=== PATIENT | male | born 1960 | race Caucasian/White ===

== ENCOUNTER 2018-09-08 15:25 | Emergency (ER) | payer MEDICAID ==
[~2018-09-08] VITALS: Ht 180.3 cm; Wt 79.4 kg
--- NOTE | 2018-09-08 15:45 | NUR ---
PT YELLING AND THRASHING IN BED. PT PLACED IN 2 POINT RESTRAINTS TO KEEP PT FROM FALLING OUT OF BED.
--- NOTE | 2018-09-08 15:45 | NUR ---
52 Y/O MALE PLACED IN BED 15 C/O EXCESS ALCOHOL CONSUMPTION.
[2018-09-08] MEDS ORDERED: IV NS 0.9% 1,000 ML BAG IV ONE (16:00)
--- NOTE | 2018-09-08 16:06 | NUR ---
PT TAKEN TO RADIOLOGY.
--- NOTE | 2018-09-08 16:40 | NUR ---
BACK FROM RADIOLOGY. IVF RUNNING.
[2018-09-08 16:50] LABS: BASOPHILS % (AUTO) 0.9 % (0.0-2.0); EOSINOPHILS % (AUTO) 0.9 % (0.0-6.0); HEMATOCRIT 40 % (39-51); HEMOGLOBIN 13.7 g/dL (13.5-17.5); LYMPHOCYTES # (AUTO) 1.1 /CMM (0.8-4.8); LYMPHOCYTES % (AUTO) 24.9 % (20.0-44.0); MEAN CORPUSCULAR HGB CONC 34 g/dl (31.0-36.0); MEAN CORPUSCULAR VOLUME 95 fL (80-96); MONOCYTES # (AUTO) 0.4 /CMM (0.1-1.30); MONOCYTES % (AUTO) 8.9 % (2.0-12.0); NEUTROPHILS # (AUTO) 2.8 /CMM (1.8-8.9); NEUTROPHILS % (AUTO) 64.4 % (43.0-81.0); PLATELET COUNT (AUTO) 185 /CMM (150-450); RED BLOOD CELL COUNT(AUTO) 4.25 MIL/uL (4.5-6.0); WHITE BLOOD COUNT (AUTO) 4.3 K/uL (4.3-11.0)
[2018-09-08 17:04] LABS: CALCIUM, SERUM 8.4 mg/dL (8.5-10.1); CARBON DIOXIDE 29 mmol/L (21-32); CHLORIDE 103 mmol/L (98-107); GLUCOSE 72 mg/dL (74-106); POTASSIUM 3.3 mmol/L (3.5-5.1); SODIUM SERUM 144 mmol/L (136-145); UREA NITROGEN, BLOOD 16 mg/dL (7-18)
[2018-09-08 17:12] LABS: ACETAMINOPHEN < 10 ug/ml (10-30); ALANINE AMINOTRANSFERASE 169 U/L (12-78); ALBUMIN 3.5 g/dL (3.4-5.0); ALCOHOL, BLOOD 450 mg/dL (0-0); ALKALINE PHOSPHATASE 70 U/L (46-116); ASPARTATE AMINOTRANSFERASE 171 U/L (15-37); BILIRUBIN,DIRECT 0.1 mg/dL (0.0-0.2); BILIRUBIN,TOTAL 0.3 mg/dL (0.2-1.0); SALICYLATE 1.1 mg/dL (2.8-20.0); TOTAL PROTEIN, SERUM 7.9 g/dL (6.4-8.2)
[2018-09-08] MEDS ORDERED: HALOPERIDOL LACTATE INJ 5 MG/ML VIAL ONE (17:50)
--- NOTE | 2018-09-08 17:53 | NUR ---
PT BECOMING RESTLESS AND YELLING. PT MEDICATED WITH HALDOL.
[2018-09-08] MEDS ORDERED: HALOPERIDOL LACTATE INJ 5 MG/ML VIAL IM ONE (18:00)
[2018-09-08] MEDS ORDERED: diphenhydrAMINE HCL 50 MG/ML VIAL IM ONE (18:30)
--- NOTE | 2018-09-08 18:54 | NUR ---
REQUEST FOR URINE CANCELLED
--- NOTE | 2018-09-08 20:51 | NUR ---
PT IS QUIET NOW. CONTINUE TO MONITOR
--- NOTE | 2018-09-08 22:36 | NUR ---
ONE OF THE TWO RESTRAINTS REMOVED. PA TO RE-EVALUATE PT.
--- NOTE | 2018-09-08 23:08 | NUR ---
PT TOTALLY OUT OF RESTRAINTS. PT BEING GIVEN MULTIPLE GLASSES OF ICE WATER. PT SHOULD BE ABLE TO WALK SHORTLY.
--- NOTE | 2018-09-08 23:35 | NUR ---
ENDORSEMENT REC'D FROM TALA SEGURA FOR [facility]
--- NOTE | 2018-09-08 23:45 | NUR ---
PT IS QUIET IN BED SLEEPING. EASILY AROUSED. NO COMPLAINTS AT THIS TIME
--- NOTE | 2018-09-09 01:07 | NUR ---
Patient is resting comfortably in bed with eyes closed. Easily aroused. VSS
--- NOTE | 2018-09-09 01:45 | NUR ---
Patient discharged to home in stable condition. Written and verbal after care instructions given. Patient verbalizes understanding of instruction.
[2018-09-09 01:55] VITALS: BP 143/78
== END 2018-09-09 01:57 | disposition home or self-care (01) ==
LOC: EDBD 15:27 → ER 15:27
DX: F10.129 Alcohol abuse with intoxication, unspecified (principal); R94.02 Abnormal brain scan; Y90.8 Blood alcohol level of 240 mg/100 ml or more
CPT/HCPCS: 36415; 70450; 71045; 80048; 80076; 80329; 83690; 85025; 96372; 99284; A4606; G0480 ×2; J1630; J7030 ×2; Z7610

== ENCOUNTER 2018-09-13 12:38 | Emergency (ER) | payer MEDICAID ==
[~2018-09-13] VITALS: Ht 177.8 cm; Wt 74.4 kg
--- NOTE | 2018-09-13 12:38 | NUR ---
PT [id number] FOR ETOH, PICKED UP FROM THE STREETS. PT IS NON-VERBAL, APPEARS INTOXICATED, RESPONSDS TO PAINFUL STIMULI, RESPIRATIOSN EVEN AND UNLABORED, NAD, PT ON MONITOR, AWAITING ER PROVIDER EVAL.
--- NOTE | 2018-09-13 14:13 | NUR ---
PT WAS BROUGHT TO CT, UPON RETURN, PT WAS RESTLESS AND TRYING TO GET OUT OF BED. ATTEMPTED TO REDIRECT AND INSTRUCT PT, INEFFECITVE AT THIS TIME. DR. MAURICE MADE AWARE, WITH ORDERS TO PUT VELCRO RESTRAINTS ON PT FOR SAFETY.
[2018-09-13] MEDS ORDERED: LORAZEPAM 1 MG TABLET ONE (15:56)
[2018-09-13] MEDS ORDERED: LORAZEPAM 1 MG TABLET PO ONE (16:00)
[2018-09-13] MEDS ORDERED: diphenhydrAMINE HCL 50 MG/ML VIAL IM ONE (16:30)
[2018-09-13] MEDS ORDERED: HALOPERIDOL LACTATE INJ 5 MG/ML VIAL IM ONE (16:30)
--- NOTE | 2018-09-13 16:45 | NUR ---
DR TAVAREZ ORDERED BENADRYL AND HALDOL FOR RESTLESSNESS, PT IS EATING RIGHT NOW, COOPERATIVE WITH STAFF. PER DR TAVAREZ, HOLD THE ORDER FOR NOW, IF PT BECOMES RESTLESS AGAIN TO GIVE MEDICATIONS.
--- NOTE | 2018-09-13 18:39 | NUR ---
ORDERED TRAY FROM KITCHEN, IN ROOM EATING FOOD AT THIS TIME
[2018-09-13 18:40] VITALS: BP 134/60
--- NOTE | 2018-09-13 19:26 | NUR ---
PT IN BED, AWAKE, ALERT, RESPONDS TO QUESTIONS APPROPRIETLY, DENIES AND SI OR HI, AAOX4, AMBULATES TO BATHROOM WITH STEADY GAIT, GIVEN FULL MEAL TRAY AND FLUIDS, DR. TAVAREZ MADE AWARE.
--- NOTE | 2018-09-13 19:37 | NUR ---
PT AWAKE, ALERT, AMBUTORY WITH STEADY GAIT, PT ELOPED, MD DR TAVAREZ MADE AWARE.
== END 2018-09-13 19:39 | disposition left against medical advice (07) ==
LOC: ER 12:42
DX: S00.81XA Abrasion of other part of head, initial encounter (principal); G93.49 Other encephalopathy; F10.129 Alcohol abuse with intoxication, unspecified; X58.XXXA Exposure to other specified factors, initial encounter; Y93.89 Activity, other specified; Y92.89 Other specified places as the place of occurrence of the external cause; Y99.8 Other external cause status
CPT/HCPCS: 36415; 70450; 72125; 99284; A4606; G0480; Z7610

== ENCOUNTER 2018-09-14 14:13 | Emergency (ER) | payer MEDICAID ==
[~2018-09-14] VITALS: Ht 175.3 cm; Wt 76.2 kg
--- NOTE | 2018-09-14 14:44 | NUR ---
PT CONTINUES TO SCREAM DESPITE REPEATED EDUCATION ON PLAN OF CARE AND ASKING HIM TO SETTLE DOWN
[2018-09-14] MEDS ORDERED: diphenhydrAMINE HCL 50 MG/ML VIAL IM ONE (15:00)
[2018-09-14] MEDS ORDERED: HALOPERIDOL LACTATE INJ 5 MG/ML VIAL IM ONE (15:00)
--- NOTE | 2018-09-14 15:00 | NUR ---
PT BIB RA, WAS FOUND LYING ON THE STREET SMELLING OF ETOH. PT IS ALERT BUT UNABLE TO ASSESS ORIENTATION. RESP EVEN UNLABORED. SKIN WARM DRY. PT YELLING BUT UNABLE TO UNDERSTAND WHAT PT IS SAYING.
[2018-09-14 15:08] LABS: BASOPHILS # (AUTO) 0.1 /CMM (0.0-0.2); BASOPHILS % (AUTO) 0.8 % (0.0-2.0); EOSINOPHILS % (AUTO) 2.6 % (0.0-6.0); HEMATOCRIT 39 % (39-51); HEMOGLOBIN 12.9 g/dL (13.5-17.5); LYMPHOCYTES # (AUTO) 1.2 /CMM (0.8-4.8); LYMPHOCYTES % (AUTO) 16.6 % (20.0-44.0); MEAN CORPUSCULAR HGB CONC 33 g/dl (31.0-36.0); MEAN CORPUSCULAR VOLUME 96 fL (80-96); MONOCYTES # (AUTO) 0.7 /CMM (0.1-1.30); MONOCYTES % (AUTO) 9.5 % (2.0-12.0); NEUTROPHILS # (AUTO) 4.9 /CMM (1.8-8.9); NEUTROPHILS % (AUTO) 70.5 % (43.0-81.0); PLATELET COUNT (AUTO) 184 /CMM (150-450); RED BLOOD CELL COUNT(AUTO) 4.02 MIL/uL (4.5-6.0)
[2018-09-14] MEDS ORDERED: HALOPERIDOL LACTATE INJ 5 MG/ML VIAL ONE (15:09)
[2018-09-14] MEDS ORDERED: diphenhydrAMINE HCL 50 MG/ML VIAL ONE (15:09)
[2018-09-14 15:15] LABS: CALCIUM, SERUM 8.2 mg/dL (8.5-10.1); CREATININE 1.1 mg/dL (0.6-1.3); POTASSIUM 3.5 mmol/L (3.5-5.1)
--- NOTE | 2018-09-14 16:04 | NUR ---
PT NOW QUIET, ASLEEP BUT EASILY AROUSABLE. VSS.
--- NOTE | 2018-09-14 18:12 | NUR ---
PT CALM AND COOPERATIVE, ASSISTED TO RESTROOM WITH STANDBY ASSIST. PT ALERT AND ORIENTED, BUT STATES "I'M NOT READY TO GO HOME YET".
--- NOTE | 2018-09-14 19:10 | NUR ---
Patient discharged to home in stable condition. Written and verbal after care instructions given. Patient verbalizes understanding of instruction. AMBULATORY STEADY GAIT
[2018-09-14 19:12] VITALS: BP 164/108
== END 2018-09-14 19:13 | disposition home or self-care (01) ==
LOC: ER 14:14
DX: F10.129 Alcohol abuse with intoxication, unspecified (principal); Y90.9 Presence of alcohol in blood, level not specified
CPT/HCPCS: 36415; 80048; 85025; 96372 ×2; 99283; A4606; J1200; J1630; Z7610

== ENCOUNTER 2018-09-17 12:09 | Emergency (ER) | payer MEDICAID ==
[~2018-09-17] VITALS: Ht 170.2 cm; Wt 86.2 kg
--- NOTE | 2018-09-17 12:22 | NUR ---
ASSUME PT CARE. LAVINIA FROM THE STREETS, PASSED OUT IN A SIDEWALK W/ +ETOH SMELL, PT IS AWAKE, REFUSING TO ANSWER QUESTIONS. PLACED ON MONITOR. AWAITING MD TREVIZO.
--- NOTE | 2018-09-17 12:24 | NUR ---
DR RANDHAWA AT BEDSIDE FOR EVAL.
--- NOTE | 2018-09-17 12:26 | NUR ---
BG 96 IN THE FIELD PER PARAMEDICS.
[2018-09-17] MEDS ORDERED: diphenhydrAMINE HCL 50 MG/ML VIAL ONE (12:27)
[2018-09-17] MEDS ORDERED: HALOPERIDOL LACTATE INJ 5 MG/ML VIAL ONE (12:28)
[2018-09-17] MEDS ORDERED: HALOPERIDOL LACTATE INJ 5 MG/ML VIAL IM ONE (12:30)
[2018-09-17] MEDS ORDERED: diphenhydrAMINE HCL 50 MG/ML VIAL IM ONE (12:30)
--- NOTE | 2018-09-17 12:33 | NUR ---
PT TRYING TO GET OUT OFF BED. UNSTEADY GAIT, AGITATED AND YELLING AND REFUSING TO STAY IN BED. DR RANDHAWA AWARE. MEDICATED ORDERED.
--- NOTE | 2018-09-17 13:30 | NUR ---
PT SLEEPING IN BED. EASILY AROUSABLE. ON MONITOR W/ STABLE VITALS. WILL CONT TO MONITOR.
--- NOTE | 2018-09-17 16:26 | NUR ---
PT IS SLEEPING AT THE BED, EASILY AROUSABLE, V/S STABLE, WILL CONTINUE TO MONITOR.
--- NOTE | 2018-09-17 21:29 | NUR ---
ASSUMED D/C CARE ONLY AT THIS TIME. NOTED PT WALKING OUT ER STATING "I WANT ATAXI TO GO HOME". DR. MAURICE NOTIFIED. DENIES ANY MEDICAL OR PSYCH C/O.
[2018-09-17 21:31] VITALS: BP 134/77
== END 2018-09-17 21:32 | disposition home or self-care (01) ==
LOC: ER 12:14
DX: F10.129 Alcohol abuse with intoxication, unspecified (principal); Z59.0 Homelessness; Y90.9 Presence of alcohol in blood, level not specified
CPT/HCPCS: A4606; J1200; J1630; Z7610